=== PATIENT | male | born 1950 | race Caucasian/White ===

== ENCOUNTER → 2017-10-04 | Outpatient (CLI) | payer OTHER | END | disposition home or self-care (01) | DX: M17.11 Unilateral primary osteoarthritis, right knee (principal); R26.2 Difficulty in walking, not elsewhere classified; M25.561 Pain in right knee; M25.661 Stiffness of right knee, not elsewhere classified; Z74.1 Need for assistance with personal care; M62.81 Muscle weakness (generalized) | CPT/HCPCS: 97161 GP; 97165 GO; 97530 GP; 97535 GO ==

== ENCOUNTER 2017-11-07 22:02 | Inpatient (IN) | payer OTHER ==
[~2017-11-07] VITALS: Ht 162.6 cm; Wt 94.1 kg
[~2017-11-07 22:02] MED LIST: ACTOS15 MG PO; AMARYL2 MG PO; CINNAMON500 MG PO; NIACIN1000 MG PO; PRILOSEC20 MG PO; ZESTRIL10 MG PO; ZOCOR20 MG PO
[2017-11-08 06:16] VITALS: BP 167/84
[2017-11-08 10:44] LABS: HEMATOCRIT 36.3 % (38.0-50.0); MCH 31.4 PG (29.0-34.0); MCHC 33.1 G/DL (30.0-36.0); NRBC (%) 0.6 /100 WBC (0-0); PLATELET COUNT 156 K/uL (156-360); RBC DIS.WIDTH-CV 13.6 % (11.8-14.6); RBC DIS.WIDTH-SD 47.4 % (39-53); RED BLOOD COUNT 3.82 M/uL (4.00-5.50); WHITE BLOOD COUNT 6.6 K/uL (4.1-10.2)
[2017-11-08 11:12] VITALS: BP 132/69
[2017-11-08 16:16] VITALS: BP 113/59
[2017-11-08 20:24] VITALS: BP 136/67
[2017-11-09 00:15] VITALS: BP 140/69
[2017-11-09 04:33] VITALS: BP 137/74
[2017-11-09 06:21] LABS: HEMATOCRIT 38.4 % (38.0-50.0); HEMOGLOBIN 12.6 G/DL (12.5-16.6); MCV 93.7 FL (86-99)
[2017-11-09 06:33] LABS: CHLORIDE 103 MEQ/L (99-109); CREATININE 0.8 MG/DL (0.6-1.3); GFR ESTIMATE (CALCULATED) > 59 mL/min/ (58.99-99999); GLUCOSE 157 mg/dL (70-99); POTASSIUM 3.9 MEQ/L (3.7-5.4); SODIUM 138 MEQ/L (136-147); UREA NITROGEN (BUN) 17 mg/dL (9-23)
[2017-11-09 08:00] VITALS: BP 127/60
[2017-11-09 12:11] VITALS: BP 134/63
[2017-11-09 16:00] VITALS: BP 145/66
[2017-11-09 20:14] VITALS: BP 158/70
[2017-11-10 00:09] VITALS: BP 141/64
[2017-11-10 04:13] VITALS: BP 162/72
[2017-11-10 06:01] LABS: HEMATOCRIT 35.6 % (38.0-50.0); HEMOGLOBIN 11.8 G/DL (12.5-16.6); MCV 92.7 FL (86-99)
[2017-11-10 08:08] VITALS: BP 133/63
[2017-11-10] MEDS ORDERED: LOVENOX40 MG/0.4 SC (08:18)
[2017-11-10] MEDS ORDERED: OXYCODONE-APAP1 EACH PO (08:18)
[2017-11-10] MEDS ORDERED: DOCUSATE SODIU100 MG PO (08:18)
[2017-11-10] MEDS ORDERED: CELECOXIB200 MG PO (08:18)
[2017-11-10 12:00] VITALS: BP 131/56
== END 2017-11-10 14:20 | DRG 470 ==
LOC: 2SOUTH → ENRESERV 22:02 → 2SOUTH 11-08 05:42 → 3WEST 11-08 10:58 → 2SOUTH 11-08 14:36 → 3WEST 11-10 14:20
PROVIDERS: Orthopaedic Surgery
PROC: 0SRC0J9 Replacement of Right Knee Joint with Synthetic Substitute, Cemented, Open Approach (ICD-10-PCS; principal; 2017-11-08)
DX: M17.11 Unilateral primary osteoarthritis, right knee (principal); I10 Essential (primary) hypertension; E11.9 Type 2 diabetes mellitus without complications; E78.00 Pure hypercholesterolemia, unspecified; K21.9 Gastro-esophageal reflux disease without esophagitis; E66.9 Obesity, unspecified; Z87.891 Personal history of nicotine dependence; Z79.82 Long term (current) use of aspirin; Z79.84 Long term (current) use of oral hypoglycemic drugs; Z68.35 Body mass index [BMI] 35.0-35.9, adult
CPT/HCPCS: 73560; 80048; 82948; 85014; 85018; 85027; 97530 GP; C1713; J0131; J0690; J1100; J1650; J1815; J1885; J2250; J2405; J2795; J3010; J7050; S0020